=== PATIENT | female | born 1925 | race Two or more races ===

== ENCOUNTER → 2017-09-06 | Emergency (ER) | payer OTHER ==
[~2017-09-06] VITALS: Ht 160 cm; Wt 74.8 kg
[~2017-09-06] MED LIST: ACID CONTROLLER20 MG; AVAPRO300 MG PO; BAYER CHEWABLE81 MG; COZAAR25 MG; LIPITOR20 MG; METFORMIN HCL500 MG; NORVASC5 MG; PROTONIX40 MG; SINGULAIR5 MG; TRAMADOL HCL-AP1 TAB; TRICOR48 MG PO; [UNRECOGNIZED DRUG - OTHER]
== END | disposition home or self-care (01) ==
LOC: ER 15:12
DX: S00.03XA Contusion of scalp, initial encounter (principal); S39.93XA Unspecified injury of pelvis, initial encounter; R42 Dizziness and giddiness; W18.09XA Striking against other object with subsequent fall, initial encounter; Y93.89 Activity, other specified; Y92.018 Other place in single-family (private) house as the place of occurrence of the external cause; Y99.8 Other external cause status